=== PATIENT | female | born 1995 | race Caucasian/White ===

== ENCOUNTER 2016-11-12 19:52 | Emergency (ER) | payer MEDICAID | END 2016-11-12 22:00 | disposition home or self-care (01) | LOC: D.ER 19:52 | DX: S63.501A Unspecified sprain of right wrist, initial encounter (principal); W19.XXXA Unspecified fall, initial encounter; Y93.89 Activity, other specified; Y92.89 Other specified places as the place of occurrence of the external cause; S93.401A Sprain of unspecified ligament of right ankle, initial encounter; F31.9 Bipolar disorder, unspecified; F17.200 Nicotine dependence, unspecified, uncomplicated ==

== ENCOUNTER → 2016-11-24 14:43 | Outpatient (CLI) | payer MEDICARE, MEDICAID | END | disposition home or self-care (01) | LOC: D.MRI 14:43 | DX: M25.571 Pain in right ankle and joints of right foot (principal) ==